=== PATIENT | female | born 1940 | race Caucasian/White ===

== ENCOUNTER → 2017-09-11 17:53 | Outpatient (CLI) | payer MEDICARE, SELFPAY ==
--- NOTE | 2017-09-11 18:01 | RAD_ITS ---
STUDY: X-RAY - CERVICAL SPINE REASON FOR EXAM: Female, 77 years old. Neck pain TECHNIQUE: 4 view(s) of the cervical spine were obtained. COMPARISON: None FINDINGS: There is degenerative loss of disc height with osteophytic ridging at C3-C4, C4-C5 and C5-C6. There is LEFT-sided facet arthropathy at C5-C6. The odontoid process is intact. There are NO fractures or malalignments. The prevertebral soft tissues are normal in thickness. RAD/Cerv Spine 2 or 3 Views IMPRESSION: There are degenerative disc changes. There is NO fracture or malalignment. Electronically Signed: Tj Agosto MD at 6:26 EDT , Service support ,
[2017-09-11 18:59] LABS: Absolute Lymphocyte Count 1.98 X10^3/ul (0.83-4.51); Absolute Neutrophil Count 4.9 X10^3/uL (2.0-7.7); Basophil# 0.03 X10^3/uL; Basophil% 0.4 % (0-1); Eosinophil# 0.06 X10^3/uL; Eosinophils% 0.8 % (0-5); Hemoglobin 13.3 g/dl (12.0-15.0); Lymphocyte # 1.98 X10^3/ul (4.0); Lymphocyte % 26.1 % (19-41); Mean Corp Hgb Conc 33.3 g/gl (32-36); Mean Corpuscular Hgb 34.2 pg (27.0-32.0); Mean Corpuscular Volume 102.8 fL (81-99); Mean Platelet Vol. 9.3 fl (6.2-12.0); Monocyte# 0.63 X10^3/uL; Monocyte% 8.3 % (0-10); Neutrophil # 4.88 X10^3/uL (2.7-7.7); Neutrophil % 64.3 % (47-70); Platelet Count 259 K/mm3 (150-450); RBC Distribution Width CV 13.2 % (11.6-14.6); RBC Distribution Width SD 49.7 fl (35.1-43.9); Red Blood Count 3.89 M/mm3 (4.2-5.4); White Blood Count 7.6 K/mm3 (4.4-11.0)
[2017-09-11 19:02] LABS: POSITIVE COUNT NO; POSITIVE DIFFERENTIAL NO; POSITIVE MORPHOLOGY NO
[2017-09-11 19:28] LABS: ALB/GLOB Ratio 1.2 RATIO (0.9-2.4); AST(SGOT) 41 U/L (15-37); Alanine Aminotransfer ALT/SGPT 62 U/L (13-56); Albumin, Serum 3.9 g/dL (3.2-5.0); Alkaline Phosphatase 59 U/L (45-117); Anion Gap 9 (5-15); BUN 11 mg/dL (7-18); BUN/Creat Ratio 15.6 RATIO (10-20); Calcium,Total 9.6 mg/dL (8.5-10.1); Chloride 97 mmol/L (98-107); Cholesterol 212 mg/dL (200); EST Glomerular Filtration Rate 86 mL/min (>60); Est Glom Filt Rate - Afr Amer 104 mL/min (>60); Globulin 3.2 g/dL (2.2-4.2); Glucose 100 mg/dL (74-106); High Density Lipoprotein 139 mg/dL; Protein, Total 7.1 g/dL (6.4-8.2); Sodium Level 134 mmol/L (136-145); Thyroid Stim Hormone (TSH) 2.48 uIU/mL (0.358-3.74); Triglycerides 48 mg/dL; Very Low Density Lipoprotein 10 mg/dL (5-40)
[2017-09-11 19:31] LABS: Vitamin B12 489 pg/mL (211-911); Vitamin D,25 Hydroxy 52.1 ng/mL (29.95-100.01)
[2017-09-13 16:10] LABS: Folate, Hemolysate Test 511.5 ng/mL (Not Estab.)
[2017-09-14 14:07] LABS: Folates, RBC Test 1279 ng/mL (>498)
== END ==
PROVIDERS: Family Provider Family Medicine Geriatric Medicine; PCP Family Medicine Geriatric Medicine; Visit Provider Family Medicine Geriatric Medicine
DX: I10 Essential (primary) hypertension (principal); E53.8 Deficiency of other specified B group vitamins; E55.9 Vitamin D deficiency, unspecified; E78.4 Other hyperlipidemia; F10.10 Alcohol abuse, uncomplicated; M54.12 Radiculopathy, cervical region
CPT/HCPCS: 36415; 72040; 80053; 80061; 82306; 82607; 82747; 84443; 85014; 85025

== ENCOUNTER → 2017-10-03 07:34 | Outpatient (CLI) | payer MEDICARE, SELFPAY ==
--- NOTE | 2017-10-03 07:45 | MRI_ITS ---
STUDY: MRI CERVICAL SPINE WITHOUT CONTRAST REASON FOR EXAM: Female, 77 years old. neck pain, left arm pain/ tingling TECHNIQUE: Standardized fat and water weighted pulse sequences were obtained in the sagittal and axial planes. COMPARISON: X-ray September 11, 2017 FINDINGS: Normal foramen magnum and brainstem-cervical cord junction. Normal craniovertebral junction. Normal anterior atlantoaxial articulation. Normal odontoid process. Normal cervical lordosis. There is loss of disc height at C3-4 through C5-6. There is multilevel disc desiccation. Vertebral body heights are maintained. Bone marrow signal is normal. C2/3: No disc bulge or herniation or central canal or neuroforaminal stenosis. C3/4: There is bilateral uncovertebral hyperostosis. There is a broad-based protrusion extending from the right to left paracentral regions, larger on the right. There is moderate central canal stenosis and severe bilateral neuroforaminal stenosis. C4/5: There is left worse than right uncovertebral hyperostosis and a diffuse bulge larger on the left. There is left facet arthropathy. There is moderate central canal stenosis and severe left and moderate right neural foraminal stenosis. C5/6: There is left uncovertebral hyperostosis and a diffuse bulge larger on the left. There is moderate central canal stenosis and severe left and moderate right neuroforaminal stenosis. C6/7: There is a small right paracentral protrusion. There is left facet arthropathy. There is no central canal stenosis. There is moderate left without right neuroforaminal stenosis. C7/T1: No disc bulge or herniation or central canal stenosis. There are subcentimeter bilateral foraminal cystic structures suggesting perineural cysts. T1/2: Sagittal images only were obtained. No disc bulge or herniation or central canal stenosis. There are subcentimeter bilateral foraminal cystic structures suggesting perineural cysts. Normal cervical cord. Normal visualized soft tissue structures. MRI/Spine Cervical (Routine) IMPRESSION: Multilevel degenerative changes, as described above. C3/4: There is bilateral uncovertebral hyperostosis. There is a broad-based protrusion extending from the right to left paracentral regions, larger on the right. There is moderate central canal stenosis and severe bilateral neuroforaminal stenosis. C4/5: There is left worse than right uncovertebral hyperostosis and a diffuse bulge larger on the left. There is left facet arthropathy. There is moderate central canal stenosis and severe left and moderate right neural foraminal stenosis. C5/6: There is left uncovertebral hyperostosis and a diffuse bulge larger on the left. There is moderate central canal stenosis and severe left and moderate right neuroforaminal stenosis. C6/7: There is a small right paracentral protrusion. There is left facet arthropathy. There is moderate left neuroforaminal stenosis. C7/T1: There are subcentimeter bilateral foraminal cystic structures suggesting perineural cysts. T1/2: There are subcentimeter bilateral foraminal cystic structures suggesting perineural cysts. Electronically Signed: Lucille Martines MD at 13:42 EDT , Service support ,
== END ==
PROVIDERS: Family Provider Family Medicine Geriatric Medicine; PCP Family Medicine Geriatric Medicine; Visit Provider Anesthesiology Pain Medicine
DX: M54.2 Cervicalgia (principal); M79.602 Pain in left arm
CPT/HCPCS: 72141

== ENCOUNTER 2020-02-10 18:38 | Observation (INO) | payer MEDICARE, SELFPAY ==
[2020-02-10 18:40] VITALS: BP 149/83; PULSE 62; RESP 18; TEMP 36.3; O2SAT 99; BMI 29.8
--- NOTE | 2020-02-10 19:06 | EKG12_ITS ---
Test Reason : WEAKNESS Blood Pressure : / mmHG Vent. Rate : 059 BPM Atrial Rate : 059 BPM P-R Int : 218 ms QRS Dur : 086 ms QT Int : 424 ms P-R-T Axes : 036 015 063 degrees QTc Int : 419 ms Sinus bradycardia with 1st degree A-V block Otherwise normal ECG Confirmed by ALIYA DAVIS, PARVEZ ([id number]), editor newspaper SHYANNE NAZARIO ([id number]) on 02/12/2020 1:03:27 PM Referred By: DC/ Confirmed By:PARVEZ PISANO MD
[2020-02-10 19:18] VITALS: O2SAT 99
[2020-02-10 19:30] LABS: Absolute Lymphocyte Count 1.61 X10^3/uL (0.83-4.51); Absolute Neutrophil Count 3.8 X10^3/uL (2.0-7.7); Basophil# 0.07 X10^3/uL; Basophil% 1.1 % (0-1); Eosinophils% 3.1 % (0-5); Hematocrit 29.6 % (37-47); Hemoglobin 9.8 g/dL (12.0-15.0); Lymphocyte # 1.61 X10^3/ul (4.0); Lymphocyte % 25.4 % (19-41); Mean Corp Hgb Conc 33.1 g/dL (32-36); Mean Corpuscular Hgb 33.4 pg (27.0-32.0); Mean Platelet Vol. 10.5 fl (6.2-12.0); Monocyte# 0.66 X10^3/uL; Monocyte% 10.4 % (0-10); NRBC Flagged by Analyzer 0 % (0-5); Neutrophil # 3.79 X10^3/uL (2.7-7.7); Neutrophil % 59.7 % (47-70); Platelet Count 322 K/mm3 (150-450); RBC Distribution Width CV 12.6 % (11.6-14.6); RBC Distribution Width SD 46.5 fl (35.1-43.9); Red Blood Count 2.93 M/mm3 (4.2-5.4); White Blood Count 6.4 K/mm3 (4.4-11.0)
--- NOTE | 2020-02-10 19:45 | RAD_ITS ---
STUDY: X-RAY CHEST REASON FOR EXAM: Female, 79 years old. WEAKNESS AND SOB. TECHNIQUE: Single AP portable view of the chest. COMPARISON: None. FINDINGS: The lungs are clear and expanded. There is no demonstrated pleural abnormality. Normal size heart. Normal mediastinum and ibis. Normal visualized pulmonary arteries. There is atherosclerotic calcification of the aortic arch with tortuosity. Unremarkable visualized osseous structures. RAD/Chest 1 View (Portable) IMPRESSION: No acute process Electronically Signed: Dean Maldonado MD at 20:00 EDT , Service support ,
[2020-02-10 19:56] LABS: BNP,B-Type NATRIURETIC PEPTIDE 221.2 pg/mL (0-100)
[2020-02-10 20:09] LABS: ALB/GLOB Ratio 1.1 RATIO (0.9-2.4); AST(SGOT) 13 U/L (15-37); Alanine Aminotransfer ALT/SGPT < 6 U/L (13-56); Albumin, Serum 3.5 g/dL (3.2-5.0); Alkaline Phosphatase 57 U/L (45-117); Anion Gap 6 (5-15); BUN 33 mg/dL (7-18); Calcium,Total 9.7 mg/dL (8.5-10.1); Chloride 93 mmol/L (98-107); Creatinine, Serum 1.94 mg/dL (0.55-1.02); EST Glomerular Filtration Rate 27 mL/min (>60); Est Glom Filt Rate - Afr Amer 32 mL/min (>60); Estimated Creatinine Clearance 20.64 ml/min; Globulin 3.1 g/dL (2.2-4.2); Glucose 94 mg/dL (74-106); Potassium 4.9 mmol/L (3.5-5.1); Protein, Total 6.6 g/dL (6.4-8.2); Sodium Level 126 mmol/L (136-145); Thyroid Stim Hormone (TSH) 2.04 uIU/mL (0.358-3.74)
[2020-02-10 20:55] VITALS: BP 144/60; PULSE 54; RESP 14; O2SAT 97
--- NOTE | 2020-02-10 21:52 | ED.DCSUM_ITS ---
- ER Visit Summary Date of Service: 02/10/20 Chief Complaint: Lower extremity edema History of Present Illness: The patient is a 79 F with bilateral lower extremity edema worsening over the past several days. Difficulty walking yesterday, and then unable to walk today. Denies any history of CHF, liver disease, renal disease. Denies any history of blood clots or painful swelling. Physical Examination: Afebrile and vital signs unremarkable. Pale skin. No acute distress. Heart regular. Lungs clear. Abdomen soft. Symmetric pitting lower extremity edema noted. Neurovascular intact distally. Test Results: EKG showed sinus rhythm at a rate of 59 with first-degree AV block. Chest x-ray normal. Hemoglobin 9.8, sodium 126, BUN 33, creatinine 1.94. Troponin normal. BNP 221. TSH normal. Emergency Department Course and Treatment: Results were reviewed with the patient. She has worsening anemia, hyponatremia, and acute kidney injury. She is not doing well at home, having trouble walking. She is not eating or drinking much. Patient and family wanted to avoid hospitalization if possible. I advised that all of this would benefit from hospitalization and is not a good choice for outpatient care. PCP agreed. The hospitalist was contacted. Treatment Plan: As above Disposition: Admission Impression: Anemia, hyponatremia, acute kidney injury This note was generated with [employer] dictation software. It may contain incorrect words, spelling, and punctuation that were not noted in review of the chart prior to signing ED Disposition - Plan for ED Patient: Referrals: GIAN REYNOSO [Primary Care Provider] -
[2020-02-10 22:10] VITALS: BP 173/85; PULSE 64; RESP 16; TEMP 36.8; O2SAT 96
--- NOTE | 2020-02-10 22:14 | HP.PCM_ITS ---
Problem List (1) Generalized weakness Status: Acute (2) Edema Status: Acute (3) Parkinson disease Status: Chronic (4) Hypertension Status: Chronic (5) Hypothyroid Status: Chronic History of Present Illness Date of Admission: 02/10/20 Chief Complaint: genarlized weakness, lower extremity edema The patient is a 79 year old female patient with a past medical history of Parkinson's disease diagnosed 3 months ago, hypertension, hypothyroidism who presents the emergency room with generalized weakness and acute lower extremity edema. Onset of this generalized weakness began approximately 4 days ago and has progressed since. The patient denies fever chills no chest pain shortness of breath no nausea vomiting or diarrhea. She does have an elevated BNTP greater than 200 however cardiac shadow is normal by chest x-ray. Due to difficulty with ambulation due to generalized weakness and unknown status of heart function patient will be admitted for diuresis of her edema and echocardiogram to evaluate heart function. Past Medical History Past Medical History (Chronic Problems): Chronic Problems Parkinson disease (Chronic) Hypertension (Chronic) Hypothyroid (Chronic) Allergies No Known Allergies Allergy (Verified 02/10/20 18:42) Home Medications: Ambulatory Orders Medication Instructions Recorded Celecoxib [Celebrex] 200 mg PO DAILY 02/26/15 Gabapentin [Neurontin] 600 mg PO QHS 02/26/15 Levothyroxine Sodium [Levoxyl] 25 mcg PO DAILY 02/26/15 Carbidopa/Levodopa 1.5 tab PO TID 02/10/20 [Carbidopa-Levodopa 25-100 Tab] Hydrochlorothiazide [Hctz] 25 mg PO DAILY 02/10/20 Lisinopril 20 mg PO DAILY 02/10/20 Metoprolol Tartrate 50 mg PO BID 02/10/20 Ondansetron [Ondansetron Odt] 4 mg PO TID PRN 02/10/20 Smoking Status: Former smoker - *Family History Maternal History Items: No pertinent history Review of Systems Constitutional: Reports: Weakness. Denies: Chills, Fever, Weight Change HEENT: Denies: Head Aches, Sinus Congestion, Sinus Drainage Cardiovascular: Reports: Edema. Denies: Chest Pain, Palpitations Respiratory: Denies: Cough, Shortness of breath at rest, Sputum production Gastrointestinal: Denies: Abdominal Pain, Nausea, Vomiting Genitourinary: Denies: Dysuria Musculoskeletal: Denies: Joint Pain, Joint Tenderness Skin: Denies: Rash, Wounds Neurological: Denies: Numbness, Tingling, Focal weakness Psychiatric: Denies: Anxiety, Depression, Homicidal Ideations, Suicidal Klaudia ations Hematologic/ Lymphatic: Denies: Easy Bruising, Easy Bleeding VTE Information - Inpt Only VTE Present on Admission: No VTE Mechan Device Prophylaxis: None Patient Problems: Active and Suspected Problems Generalized weakness (Acute) Edema (Acute) - Physical Exam Vitals/I&O's: Vital Signs Temp Pulse Resp BP Pulse Ox 98.3 F 64 16 173/85 H 96 02/10/20 22:10 02/10/20 22:10 02/10/20 22:10 02/10/20 22:10 02/10/20 22:10 Oxygen Delivery Method Room Air Weight: 174 lb Body Mass Index (BMI) 29.8 General: Alert, Oriented x3, Cooperative HEENT: Atraumatic, Normocephalic Neck: Supple Lungs: Clear to auscultation, Normal air movement, No rhonchi, No wheeze, No rales Cardiovascular: Regular rate, Normal S1, Normal S2, No murmurs Abdomen: Bowel Sounds Present, Soft, Non Tender Extremities: Capillary Refill Less than 3 Seconds, Edema - #+ pitting edema to mid calf bilat Skin: No rashes Musculoskeletal: No Tenderness to Palpation of Joints or Extremities Neurological: Neuro grossly intact Psych/Mental Status: Normal Affect, Appropriate Laboratory Results 02/10/20 19:20: Sodium 126 L, Potassium 4.9, Chloride 93 L, Carbon Dioxide 27.0, Anion Gap 6, BUN 33 H, Creatinine 1.94 H, Estim Creat Clear Calc 20.64, Est GFR (MDRD) Af Amer 32 L, Est GFR (MDRD) Non-Af 27 L, BUN/Creatinine Ratio 17.0, Glucose 94, Calcium 9.7, Total Bilirubin 0.40, AST 13 L, ALT < 6 L, Alkaline Phosphatase 57, Troponin I < 0.015, Total Protein 6.6, Albumin 3.5, Globulin 3.1, Albumin/Globulin Ratio 1.1, TSH 2.04 02/10/20 19:20: WBC 6.4, RBC 2.93 L, Hgb 9.8 L, Hct 29.6 L, MCV 101.0 H, MCH 33.4 H, MCHC 33.1, RDW Std Deviation 46.5 H, RDW Coeff of Bandar 12.6, Plt Count 322, MPV 10.5, Immature Gran % (Auto) 0.300, Neut % (Auto) 59.7, Lymph % (Auto) 25.4, [place] % (Auto) 10.4 H, Eos % (Auto) 3.1, Baso % (Auto) 1.1 H, Absolute Neuts (auto) 3.8, Absolute Lymphs (auto) 1.61, Nucleated RBC % 0 02/10/20 19:20: B-Natriuretic Peptide 221.2 H Assessment/Plan All Active Problems Generalized weakness (Acute) Edema (Acute) Chronic Problems Parkinson disease (Chronic) Hypertension (Chronic) Hypothyroid (Chronic) 1. Generalized weakness?admit patient to progressive care unit. CBC BMP in the morning. Physical therapy evaluation for activities of daily living 2. Edema?IV Lasix 20 mg x 1 and reevaluate edema in the a.m. echocardiogram in the morning to evaluate heart function 3. Parkinson's disease?continue carbidopa levodopa 4. Hypertension?continue home medications 5. Hypothyroidism?check TSH and continue thyroid medication 6. VT prophylaxis?low molecular weight heparin OBSV E&M: 69089 Initial observation care L2
[2020-02-10 22:45] VITALS: BP 141/48; PULSE 63; RESP 18; TEMP 36.6; O2SAT 100
[2020-02-10 23:21] VITALS: BMI 29.8; BMI 29.9
[2020-02-10] MEDS: Gabapentin 600 MG Tablet PO (23:49)
[2020-02-11] VITALS (10 sets, daily range): BP systolic 84–142; BP diastolic 48–69; PULSE 55–81; RESP 16–18; TEMP 36.5–36.6; O2SAT 96–100
[2020-02-11] MEDS: 0.9% Saline Lock 10 ML Syringe IV ×3 (05:49→21:03)
[2020-02-11] MEDS: Furosemide 20 MG/2 ML VIAL IV ×3 (05:49→21:02)
--- NOTE | 2020-02-11 05:55 | ECHOD_ITS ---
Reason For Study: HTN Procedure This was a 2D Doppler, Color Flow transthoracic echocardiogram. Exam performed portable in patient room. Left Ventricle Normal LV size. Mild concentric left ventricular hypertrophy. Left ventricular systolic function is normal. The estimated ejection fraction is 65 %. Diastolic function is indeterminate. No regional wall motion abnormalities noted. Right Ventricle Normal RV size. Normal systolic function. Atria The left atrium is mildly enlarged. Normal right atrium. No doppler evidence for ASD. Mitral Valve There is no mitral annular calcification. Mild mitral valve prolapse, posterior leaflet. Trivial mitral valve insufficiency. Tricuspid Valve Normal tricuspid valve. Trivial tricuspid valve insufficiency. Right ventricular systolic pressure estimated to be 27 mmHg. Aortic Valve Trisinus/trileaflet aortic valve. Mild diffuse aortic valve thickening. Mild focal aortic valve calcification. Pulmonic Valve The pulmonic valve is not well visualized. Trivial pulmonic valve insufficiency. Great Vessels Normal sized aortic root. Pericardium/Pleural No pericardial effusion. MMode/2D Measurements & Calculations LVIDd: 3.8 cm IVSd: 1.4 cm Ao root diam: 3.4 cm LVIDs: 2.2 cm LVPWd: 1.5 cm RVDd: 3.3 cm FS: 42.4 % LAV(MOD-bp): 54.5 ml LVAd ap4: 25.0 cm2 SV(MOD-sp4): 49.9 ml LAV(MOD-bp) Indexed: 29.6 ml/m2 EDV(MOD-sp4): 73.5 ml LAV(MOD-sp2): 54.0 ml EDV(sp4-el): 76.4 ml LAV(MOD-sp4): 54.3 ml LVAs ap4: 12.6 cm2 ESV(MOD-sp4): 23.6 ml ESV(sp4-el): 23.6 ml EF(MOD-sp4): 67.9 % EF(sp4-el): 69.1 % SV(sp4-el): 52.8 ml LA A4 area: 19.6 cm2 LA dimension(2D): 3.9 cm RA A4 area: 12.1 cm2 Time Measurements MV dec time: 0.28 sec Doppler Measurements & Calculations MV E max carlos a: 85.9 cm/sec Lat Peak E' Carlos A: 5.4 cm/sec Med Peak E' Carlos A: 4.6 cm/sec MV A max carlos a: 101.9 cm/sec E/E' lat: 16.0 E/E' med: 18.5 MV E/A: 0.84 MV V2 max: 96.0 cm/sec Ao V2 max: 176.7 cm/sec LV V1 max: 113.4 cm/sec MV max P.7 mmHg Ao max P.5 mmHg LV V1 max P.1 mmHg MV V2 mean: 52.3 cm/sec MV mean P.3 mmHg MV V2 VTI: 32.7 cm PA V2 max: 100.9 cm/sec TR max carlos a: 242.1 cm/sec MV P1/2t-pr_phl: 91.2 msec TR max P.5 mmHg Interpretation Summary Left ventricular systolic function is normal. The estimated ejection fraction is 65 %. Mild concentric left ventricular hypertrophy. The left atrium is mildly enlarged. Mild mitral valve prolapse, posterior leaflet Trivial mitral valve insufficiency. Trivial tricuspid valve insufficiency. Mild diffuse aortic valve thickening. Mild focal aortic valve calcification. Trivial pulmonic valve insufficiency. Right ventricular systolic pressure estimated to be 27 mmHg. Diastolic function is indeterminate. Ordering Physician: John Jenkins Referring Physician: GIAN REYNOSO Performed By: Sabina Martinez, RDCS, RVT
[2020-02-11] MEDS: Carbidopa/Levodopa 25/100 Tablet PO ×3 (06:46→16:59)
[2020-02-11] MEDS: Levothyroxine 25 MCG TABLET PO (06:46)
[2020-02-11 06:56] LABS: Anion Gap 6 (5-15); BUN 28 mg/dL (7-18); BUN/Creat Ratio 18.7 RATIO (10-20); Calcium,Total 9.4 mg/dL (8.5-10.1); Chloride 97 mmol/L (98-107); EST Glomerular Filtration Rate 36 mL/min (>60); Est Glom Filt Rate - Afr Amer 43 mL/min (>60); Estimated Creatinine Clearance 26.69 ml/min; Glucose 86 mg/dL (74-106); Potassium 4.1 mmol/L (3.5-5.1); Sodium Level 129 mmol/L (136-145); Thyroid Stim Hormone (TSH) 2.74 uIU/mL (0.358-3.74)
[2020-02-11 07:20] LABS: Differential Comment MANUAL DIFF; Lymphocyte 41 % (19-41); Monocyte 5 % (0-10); Neutrophil-Segmented 54 % (47-70); Platelet Estimate ADEQUATE (ADEQ); Red Cell Morphology NORM C+C NORMAL (NORM C&C); Total Cells Counted 100 (MANUAL DIFF)
--- NOTE | 2020-02-11 08:23 | NURSING ---
Patient okay with sharing information with PA by the name of Bertin Traore ([phone])
[2020-02-11 08:26] LABS: Absolute Lymphocyte Count 1.85 X10^3/uL (0.83-4.51); Absolute Neutrophil Count 2.4 X10^3/uL (2.0-7.7); Basophil# 0.06 X10^3/uL; Basophil% 1.2 % (0-1); Eosinophil# 0.24 X10^3/uL; Eosinophils% 4.7 % (0-5); Hematocrit 29.3 % (37-47); Lymphocyte # 1.85 X10^3/ul (4.0); Lymphocyte % 36.6 % (19-41); Mean Corp Hgb Conc 34.1 g/dL (32-36); Mean Corpuscular Hgb 34.6 pg (27.0-32.0); Mean Corpuscular Volume 101.4 fL (81-99); Mean Platelet Vol. 11.2 fl (6.2-12.0); Monocyte# 0.46 X10^3/uL; Monocyte% 9.1 % (0-10); NRBC Flagged by Analyzer 0 % (0-5); Neutrophil # 2.44 X10^3/uL (2.7-7.7); Neutrophil % 48.2 % (47-70); Platelet Count 296 K/mm3 (150-450); RBC Distribution Width CV 12.4 % (11.6-14.6); RBC Distribution Width SD 45.8 fl (35.1-43.9); Red Blood Count 2.89 M/mm3 (4.2-5.4); White Blood Count 5.1 K/mm3 (4.4-11.0)
[2020-02-11] MEDS: Celecoxib 200 MG Capsule PO (09:35)
[2020-02-11] MEDS: Enoxaparin 30 MG/0.3 ML Syringe SC (09:35)
--- NOTE | 2020-02-11 10:32 | NURSING ---
Report given to Benedict Lloyd RN at this time.
--- NOTE | 2020-02-11 11:58 | PN_ITS ---
<Ricardo Torres - Last Filed: 02/11/20 11:58> Patient Problems: Active and Suspected Problems Generalized weakness (Acute) Edema (Acute) Reason for Visit: LE edema, weakness. Subjective: No improvement in weakness. Ongoing LE edema however pt notes pedal edema improved. No SOB. No CP. No LH. No fever/chills/cough. Vitals/I&O's: Vital Signs Temp Pulse Resp BP Pulse Ox 97.8 F 70 18 84/48 L 100 02/11/20 09:13 02/11/20 09:13 02/11/20 09:13 02/11/20 09:13 02/11/20 09:13 Oxygen Delivery Method Room Air Weight: 173 lb 11.588 oz Body Mass Index (BMI) 29.8 Intake and Output for Last 24 Hours 02/09/20 02/10/20 02/11/20 23:59 23:59 23:59 Intake Total 120 / 120 Balance 120 / 120 General: Alert, Oriented x3, Cooperative HEENT: Atraumatic, PERRLA, EOMI, Normocephalic Neck: Supple, No JVD, Negative Carotid Bruits Lungs: Clear to auscultation, Normal air movement Cardiovascular: Regular rate, No murmurs Abdomen: Bowel Sounds Present, Soft, Non Tender Extremities: No edema, Capillary Refill Less than 3 Seconds, Edema - 3+ pitting edema BLE Skin: No rashes, No breakdown Musculoskeletal: No Tenderness to Palpation of Joints or Extremities Neurological: Cranial nerves II-XII grossly intact Psych/Mental Status: Normal Affect, Appropriate, Alert and oriented to time, place, person, mood and affect Laboratory Results 02/10/20 19:20: Sodium 126 L, Potassium 4.9, Chloride 93 L, Carbon Dioxide 27.0, Anion Gap 6, BUN 33 H, Creatinine 1.94 H, Estim Creat Clear Calc 20.64, Est GFR (MDRD) Af Amer 32 L, Est GFR (MDRD) Non-Af 27 L, BUN/Creatinine Ratio 17.0, Glucose 94, Calcium 9.7, Total Bilirubin 0.40, AST 13 L, ALT < 6 L, Alkaline Phosphatase 57, Troponin I < 0.015, Total Protein 6.6, Albumin 3.5, Globulin 3.1, Albumin/Globulin Ratio 1.1, TSH 2.04 02/10/20 19:20: WBC 6.4, RBC 2.93 L, Hgb 9.8 L, Hct 29.6 L, MCV 101.0 H, MCH 33.4 H, MCHC 33.1, RDW Std Deviation 46.5 H, RDW Coeff of Bandar 12.6, Plt Count 322, MPV 10.5, Immature Gran % (Auto) 0.300, Neut % (Auto) 59.7, Lymph % (Auto) 25.4, Ward % (Auto) 10.4 H, Eos % (Auto) 3.1, Baso % (Auto) 1.1 H, Absolute Neuts (auto) 3.8, Absolute Lymphs (auto) 1.61, Nucleated RBC % 0 02/10/20 19:20: B-Natriuretic Peptide 221.2 H 02/11/20 06:02: WBC 5.1, RBC 2.89 L, Hgb 10.0 L, Hct 29.3 L, MCV 101.4 H, MCH 34.6 H, MCHC 34.1, RDW Std Deviation 45.8 H, RDW Coeff of Bandar 12.4, Plt Count 296, MPV 11.2, Immature Gran % (Auto) 0.200, Neut % (Auto) 48.2, Lymph % (Auto) 36.6, Ward % (Auto) 9.1, Eos % (Auto) 4.7, Baso % (Auto) 1.2 H, Absolute Neuts (auto) 2.4, Absolute Lymphs (auto) 1.85, Total Counted 100, Neutrophils % (Manual) 54, Lymphocytes % (Manual) 41, Monocytes % (Manual) 5, Nucleated RBC % 0, Differential Comment MANUAL DIFF, Platelet Estimate ADEQUATE, RBC Morphology NORM C+C 02/11/20 06:02: Sodium 129 L, Potassium 4.1, Chloride 97 L, Carbon Dioxide 26.0, Anion Gap 6, BUN 28 H, Creatinine 1.50 H, Estim Creat Clear Calc 26.69, Est GFR (MDRD) Af Amer 43 L, Est GFR (MDRD) Non-Af 36 L, BUN/Creatinine Ratio 18.7, Glucose 86, Calcium 9.4, TSH 2.74 Current Medications Carbidopa/Levodopa (Sinemet) 1.5 tablet PO TIDAC [facility] Last Admin: 02/11/20 06:46 Dose: 1.5 tablet Documented by: Celecoxib (Celebrex) 200 mg PO DAILY [facility] Last Admin: 02/11/20 09:35 Dose: 200 mg Documented by: Enoxaparin Sodium (Lovenox) 30 mg SC DAILY [facility] Last Admin: 02/11/20 09:35 Dose: 30 mg Documented by: Furosemide (Lasix) 20 mg IV Q8 [facility] Gabapentin (Neurontin) 600 mg PO QHS [facility] Last Admin: 02/10/20 23:49 Dose: 600 mg Documented by: Sodium Chloride () 250 mls @ 15 mls/hr IV .[id number] PRN PRN Reason: Saline Flush Sodium Chloride () 250 mls @ 15 mls/hr IV .[id number] PRN PRN Reason: Additional IVPB Infusion Levothyroxine Sodium (Synthroid) 25 mcg PO DAILY@0600 [facility] Last Admin: 02/11/20 06:46 Dose: 25 mcg Documented by: Lisinopril (Zestril) 20 mg PO DAILY [facility] Metoprolol Tartrate (Lopressor (Beta Bayron)) 50 mg PO BID [facility] Ondansetron HCl (Zofran Odt) 4 mg PO TID PRN PRN PRN Reason: NAUSEA Sodium Chloride () 10 - 40 ml IV UD PRN PRN Reason: SALINE FLUSH Last Admin: 02/11/20 05:49 Dose: 10 ml Documented by: STROKE Vital Signs/Narrative: Vital Signs Temp Pulse Resp BP Pulse Ox 02/11/20 09:13 97.8 F 70 18 84/48 L 100 Medical Necessity - Tobacco Use Smoking Status: Former smoker Assessment/Plan All Active Problems Generalized weakness (Acute) Edema (Acute) 1. LE edema - unclear etiology. denies hx CHF. CXR neg. No SOB/CP. Add jarad wraps and fluid restrict. Continue lasix. Echo is pending. BNP is elevated. Obtain venous duplex. TSH normal. BP borderline. 2. THOMPSON - improved with lasix, suspect cardiorenal 3. HTN - hold orals if systolic < 100. 4. Hx parkinsons recently dx - sinemet 5. Hypothyroid - tsh normal. continue synthroid. 6. Macrocytic anemia - stable. check b12, folate, iron DVT ppx: lovenox DC planning: PT OT evals, pt here with weakness. This patient was seen by Ricardo Torres PA-C under the supervision of Doctor Feliberto. <Manfred Dao - Last Filed: 02/11/20 12:22> Vitals/I&O's: Vital Signs Temp Pulse Resp BP Pulse Ox 97.8 F 70 18 84/48 L 100 02/11/20 09:13 02/11/20 09:13 02/11/20 09:13 02/11/20 09:13 02/11/20 09:13 Oxygen Delivery Method Room Air Weight: 78.8 kg Body Mass Index (BMI) 29.8 Intake and Output for Last 24 Hours 02/09/20 02/10/20 02/11/20 23:59 23:59 23:59 Intake Total 120 / 120 Balance 120 / 120 Laboratory Results 02/10/20 19:20: Sodium 126 L, Potassium 4.9, Chloride 93 L, Carbon Dioxide 27.0, Anion Gap 6, BUN 33 H, Creatinine 1.94 H, Estim Creat Clear Calc 20.64, Est GFR (MDRD) Af Amer 32 L, Est GFR (MDRD) Non-Af 27 L, BUN/Creatinine Ratio 17.0, Glucose 94, Calcium 9.7, Total Bilirubin 0.40, AST 13 L, ALT < 6 L, Alkaline Phosphatase 57, Troponin I < 0.015, Total Protein 6.6, Albumin 3.5, Globulin 3.1, Albumin/Globulin Ratio 1.1, TSH 2.04 02/10/20 19:20: WBC 6.4, RBC 2.93 L, Hgb 9.8 L, Hct 29.6 L, MCV 101.0 H, MCH 33.4 H, MCHC 33.1, RDW Std Deviation 46.5 H, RDW Coeff of Bandar 12.6, Plt Count 322, MPV 10.5, Immature Gran % (Auto) 0.300, Neut % (Auto) 59.7, Lymph % (Auto) 25.4, Ward % (Auto) 10.4 H, Eos % (Auto) 3.1, Baso % (Auto) 1.1 H, Absolute Neuts (auto) 3.8, Absolute Lymphs (auto) 1.61, Nucleated RBC % 0 02/10/20 19:20: B-Natriuretic Peptide 221.2 H 02/11/20 06:02: WBC 5.1, RBC 2.89 L, Hgb 10.0 L, Hct 29.3 L, MCV 101.4 H, MCH 34.6 H, MCHC 34.1, RDW Std Deviation 45.8 H, RDW Coeff of Bandar 12.4, Plt Count 296, MPV 11.2, Immature Gran % (Auto) 0.200, Neut % (Auto) 48.2, Lymph % (Auto) 36.6, Ward % (Auto) 9.1, Eos % (Auto) 4.7, Baso % (Auto) 1.2 H, Absolute Neuts (auto) 2.4, Absolute Lymphs (auto) 1.85, Total Counted 100, Neutrophils % (Manual) 54, Lymphocytes % (Manual) 41, Monocytes % (Manual) 5, Nucleated RBC % 0, Differential Comment MANUAL DIFF, Platelet Estimate ADEQUATE, RBC Morphology NORM C+C 02/11/20 06:02: Sodium 129 L, Potassium 4.1, Chloride 97 L, Carbon Dioxide 26.0, Anion Gap 6, BUN 28 H, Creatinine 1.50 H, Estim Creat Clear Calc 26.69, Est GFR (MDRD) Af Amer 43 L, Est GFR (MDRD) Non-Af 36 L, BUN/Creatinine Ratio 18.7, Glucose 86, Calcium 9.4, TSH 2.74 Current Medications Carbidopa/Levodopa (Sinemet) 1.5 tablet PO TIDAC [facility] Last Admin: 02/11/20 06:46 Dose: 1.5 tablet Documented by: Enoxaparin Sodium (Lovenox) 30 mg SC DAILY [facility] Last Admin: 02/11/20 09:35 Dose: 30 mg Documented by: Furosemide (Lasix) 20 mg IV Q8 [facility] Gabapentin (Neurontin) 600 mg PO QHS [facility] Last Admin: 02/10/20 23:49 Dose: 600 mg Documented by: Sodium Chloride () 250 mls @ 15 mls/hr IV .[id number] PRN PRN Reason: Saline Flush Sodium Chloride () 250 mls @ 15 mls/hr IV .[id number] PRN PRN Reason: Additional IVPB Infusion Levothyroxine Sodium (Synthroid) 25 mcg PO DAILY@0600 [facility] Last Admin: 02/11/20 06:46 Dose: 25 mcg Documented by: Lisinopril (Zestril) 20 mg PO DAILY [facility] Metoprolol Tartrate (Lopressor (Beta Bayron)) 50 mg PO BID [facility] Ondansetron HCl (Zofran Odt) 4 mg PO TID PRN PRN PRN Reason: NAUSEA Sodium Chloride () 10 - 40 ml IV UD PRN PRN Reason: SALINE FLUSH Last Admin: 02/11/20 05:49 Dose: 10 ml Documented by: STROKE Vital Signs/Narrative: Vital Signs Temp Pulse Resp BP Pulse Ox 02/11/20 09:13 97.8 F 70 18 84/48 L 100 Assessment/Plan This patient was seen in conjunction with Ricardo Torres PA-C . I have independently interviewed and examined the patient and reviewed pertinent historical, laboratory, and other data. Please refer to Ricardo Torres PA-C note for details of this patient's presentation, findings, and recommendations. I have reviewed Ricardo Torres PA-C note and concur with documented findings. In brief, patient is an 81-year-old lady with multiple comorbidities who presented with progressive generalized fatigue and weakness with fluid ret ention. Patient was found to have acute kidney injury, hyponatremia on admission admitted to regular nursing floor for further management Physical Examination: GENERAL: cooperative HEENT: Atraumatic; EYES; Anicteric, Normal Conjunctiva NECK; supple, normal thyroid, RESPIRATORY: Diminished to auscultation CARDIOVASCULAR: Regular S1 S2, GI: soft, normoactive bowel sounds, : No Renal angle tenderness; EXTREMITIES: Bilateral edema, no clubbing, MUSCULOSKELETAL: no muscle waisting NEURO: Awake; no lateralizing signs. SKIN: No Rash PSYCH; Flat affect Assessment: 1. Adult failure to thrive 2. Suspected congestive heart failure with preserved ejection fraction (echo ordered) 3. Acute kidney injury 4. Chronic kidney disease stage III 5. Hyponatremia 6. Hypothyroidism 7. Essential hypertension (antihypertensives on hold in view of low blood pressure) 8. Parkinson's disease 9. Anemia secondary to anemia of chronic disorder Recommendations: 1. I have discussed the results of my overview and impressions with the patient 2. Options for management were reviewed Advance planning; did discuss with the patient and family regarding advanced directives as well as CODE STATUS. Did explain the various scenarios involved ( FULL CODE, DNR CCA, DNR CCA with no intubation, and DNR CC and what each meant) patient elected to remain full code with CPR and intubation if indicated. Order was placed. Time spent on discussion 18 minutes. Inpatient E&M: 20073 Subs Hosp L3 Procedures: 51249 Advncd Care Plan 30 Min
--- NOTE | 2020-02-11 12:00 | VDLE_ITS ---
Reason For Study: swelling RIGHT LEFT GSV is normal. GSV is normal. CFV is compressible, spontaneous, phasic, CFV is compressible, spontaneous, phasic, competent and demonstrates normal competent, and demonstrates normal augmentation. augmentation. FV is compressible, spontaneous, phasic, FV is compressible, spontaneous, phasic, competent and demonstrates normal competent and demonstrates normal augmentation. augmentation. POP V is compressible, spontaneous, phasic, POP V is compressible, spontaneous, phasic, competent and demonstrates normal competent and demonstrates normal augmentation. augmentation. T/P Trunk is compressible. T/P Trunk is compressible. PTV is compressible. PTV is compressible. RT PerV is compressible. LT PerV is compressible. Gastroc V are dilated and noncompressible. Procedure Exam performed portable in patient room. The exam was diagnostic. A preliminary report was called and/or faxed to Jennifer HINDS. Interpretation Summary Acute deep venous thrombosis right gastrocnemius vein No evidence for acute deep vein thrombosis left lower extremity Patent and compressible bilateral great saphenous veins Ordering Physician: Ricardo Torres Performed By: Elvin Leos RVT
[2020-02-11 14:06] LABS: Vitamin B12 420 pg/mL (211-911)
[2020-02-11 14:12] LABS: Iron 79 ug/dL (50-170); Iron Binding Capacity,Total 332 ug/dL (250-450); PERCENT IRON SATURATION 23.8 % (15.0-55.0)
--- NOTE | 2020-02-11 15:29 | CASEMGMT ---
This RN CM to room with ALVAREZ form at this time, explanation done-pt voices understanding, and pt signs ALVAREZ form at this time. Original to chart and copy to pt at this time. Pt voices no further questions/concerns/needs at this time. SStaten GUZMAN CM
--- NOTE | 2020-02-11 16:06 | CASEMGMT ---
Healthcare POA form scanned into summary tab of echart, living will provision initialed within this document. JIGNA Aranda
[2020-02-11] MEDS: APIXABAN 5 MG TABLET 10 MG PO (16:59)
[2020-02-11] MEDS: Gabapentin 600 MG Tablet PO (21:02)
[2020-02-12 02:57] VITALS: PULSE 67
[2020-02-12 03:00] VITALS: BP 112/60; PULSE 64; RESP 16; TEMP 36.3; O2SAT 96
[2020-02-12] MEDS: Carbidopa/Levodopa 25/100 Tablet PO ×2 (06:04→10:52)
[2020-02-12] MEDS: Furosemide 20 MG/2 ML VIAL IV (06:04)
[2020-02-12] MEDS: Levothyroxine 25 MCG TABLET PO (06:04)
[2020-02-12] MEDS: 0.9% Saline Lock 10 ML Syringe IV (06:04)
[2020-02-12 06:10] LABS: Hematocrit 26.5 % (37-47); Hemoglobin 8.7 g/dL (12.0-15.0); Mean Corp Hgb Conc 32.8 g/dL (32-36); Mean Corpuscular Hgb 33.7 pg (27.0-32.0); Mean Corpuscular Volume 102.7 fL (81-99); Platelet Count 298 K/mm3 (150-450); RBC Distribution Width CV 12.9 % (11.6-14.6); RBC Distribution Width SD 47.6 fl (35.1-43.9); Red Blood Count 2.58 M/mm3 (4.2-5.4); White Blood Count 4.8 K/mm3 (4.4-11.0)
[2020-02-12 06:32] LABS: Anion Gap 7 (5-15); BUN 28 mg/dL (7-18); BUN/Creat Ratio 18.4 RATIO (10-20); Calcium,Total 8.9 mg/dL (8.5-10.1); Chloride 97 mmol/L (98-107); Creatinine, Serum 1.52 mg/dL (0.55-1.02); EST Glomerular Filtration Rate 35 mL/min (>60); Est Glom Filt Rate - Afr Amer 43 mL/min (>60); Estimated Creatinine Clearance 26.34 ml/min; Glucose 99 mg/dL (74-106); Magnesium 1.8 mg/dL (1.6-2.6); Potassium 3.7 mmol/L (3.5-5.1); Sodium Level 134 mmol/L (136-145)
[2020-02-12 06:43] VITALS: PULSE 67
[2020-02-12 08:57] VITALS: BP 124/61; PULSE 72; RESP 18; TEMP 36.6; O2SAT 98
[2020-02-12] MEDS: APIXABAN 5 MG TABLET 10 MG PO (08:59)
--- NOTE | 2020-02-12 11:56 | PCM.DC ---
- Discharge Diagnoses Current Active Problems: Current Active and Chronic Problems Generalized weakness (Acute) Edema (Acute) Parkinson disease (Chronic) Hypertension (Chronic) Hypothyroid (Chronic) You will use the following diet at home:: Cardiac, Other - 1800 cc of fluid daily, 2-3 grams of sodium daily Your food should be the consistency of: Regular Your liquids should be the consistency of: Regular/Thin Discharge Activity: Return to Normal Activity Additional Instructions: You will need to contact your family medicine physician to arrange to have a CBC and BMP (labs) in one week. You will need to contact your physical therapist of choice to arrange to initiate outpatient physical therapy. Allergies/Adverse Reactions: Allergies No Known Allergies Allergy (Verified 02/10/20 18:42) Medications to take at Discharge Gabapentin [Neurontin] 600 mg PO QHS 02/26/15 Levothyroxine Sodium [Levoxyl] 25 mcg PO DAILY 02/26/15 Carbidopa/Levodopa [Carbidopa-Levodopa 25-100 Tab] 1.5 tab PO TID 02/10/20 Lisinopril 20 mg PO DAILY 02/10/20 Metoprolol Tartrate 50 mg PO BID 02/10/20 Ondansetron [Ondansetron Odt] 4 mg PO TID PRN 02/10/20 Apixaban [Eliquis] 10 mg PO BID #60 tab 02/12/20 Furosemide [Lasix] 40 mg PO DAILY #30 tab 02/12/20 Potassium Chloride [K-Dur] 10 meq PO DAILY #30 tab 02/12/20 The following prescriptions were given: Apixaban [Eliquis] 10 mg PO BID #60 tab Transmission Status: Pending to [facility] Potassium Chloride [K-Dur] 10 meq PO DAILY #30 tab Transmission Status: Pending to [facility] Furosemide [Lasix] 40 mg PO DAILY #30 tab Transmission Status: Pending to [facility] Primary Care Physician: GIAN REYNOSO [Primary Care Provider] - Please follow up with your Primary Care Physician in: 1 week Test Results: Test results from this visit will be discussed in further detail at your follow-up appointment, if applicable. Proposed Discharge Date: 02/12/20
[2020-02-12] MEDS: Magnesium Oxide 400 MG Tablet 800 MG PO (12:16)
--- NOTE | 2020-02-12 12:35 | CASEMGMT ---
Therapy is recommending OP therapy for pt at this time and pt/son state that they would like a script to take to [facility] as pt has been there in the past. Script obtained and to pt at this time. Pt also to be sent home on Eliquis at discharge and med e-scribed to [facility] retail previously. Call to Reece in [facility] retail pharmacy and he states that pt's monthly co-pay will be $47.00 but he did apply a 30 day free trial card at this time. Reece, pharmacist, does state that pt has a $100deductible left to med for meds at this time. Pt/son updated on all at this time, voice understanding and questions answered. Pt/son voice no further questions/concerns/needs at this time. Isra HINDS CM
--- NOTE | 2020-02-12 12:51 | PHA.DC.MC ---
Pharmacy Service has performed discharge medication reconciliation and counseling for this patient. 1. APIXABAN 10MG PO BID X 12 DOSES, THEN 5MG PO BID THEREAFTER 2. FUROSEMIDE 40MG PO DAILY 3. POTASSIUM CHLORIDE 10MEQ PO DAILY The patient's discharge medication list was reviewed for discrepancies and discrepancies were resolved. Home Medications Gabapentin [Neurontin] 600 mg PO QHS 02/26/15 Levothyroxine Sodium [Levoxyl] 25 mcg PO DAILY 02/26/15 Carbidopa/Levodopa [Carbidopa-Levodopa 25-100 Tab] 1.5 tab PO TID 02/10/20 Lisinopril 20 mg PO DAILY 02/10/20 Metoprolol Tartrate 50 mg PO BID 02/10/20 Ondansetron [Ondansetron Odt] 4 mg PO TID PRN 02/10/20 Apixaban [Eliquis] 10 mg PO BID #60 tab 02/12/20 Furosemide [Lasix] 40 mg PO DAILY #30 tab 02/12/20 Potassium Chloride [K-Dur] 10 meq PO DAILY #30 tab 02/12/20 The patient was counseled on the following discharge medications and changes in medications for homegoing were reviewed. The Reason for Use, instructions for use, and potential side effects were reviewed for all new medications. The patient's questions regarding all of their medications were answered. The patient was able to verbally demonstrate an understanding of their discharge medications. Patient counseled by pharmacy benefit managerGeo.
--- NOTE | 2020-02-12 14:25 | DS.PCM_ITS ---
<Ricardo Torres - Last Filed: 02/12/20 14:25> Discharge Date and Diagnosis Date of Admission: 02/10/20 Date of Discharge: 02/12/20 - Primary Discharge Diagnosis Acute Problems: Lower extremity edema secondary to acute diastolic congestive heart failure and right lower extremity DVT Macrocytic anemia Acute kidney injury secondary to cardiorenal syndrome Hypervolemic hyponatremia - Secondary Discharge Diagnosis Chronic Problems: Chronic Problems Parkinson disease (Chronic) Hypertension (Chronic) Hypothyroid (Chronic) Hospital Course and Treatment Imaging Results: RAD/Chest 1 View (Portable) IMPRESSION: No acute process Echo: Interpretation Summary Left ventricular systolic function is normal. The estimated ejection fraction is 65 %. Mild concentric left ventricular hypertrophy. The left atrium is mildly enlarged. Mild mitral valve prolapse, posterior leaflet Trivial mitral valve insufficiency. Trivial tricuspid valve insufficiency. Mild diffuse aortic valve thickening. Mild focal aortic valve calcification. Trivial pulmonic valve insufficiency. Right ventricular systolic pressure estimated to be 27 mmHg. Diastolic function is indeterminate. LE Venous duplex: Interpretation Summary Acute deep venous thrombosis right gastrocnemius vein No evidence for acute deep vein thrombosis left lower extremity Patent and compressible bilateral great saphenous veins Operations: None Procedures: 2-D Echocardiogram Summary of Care Provided: Hospital Course: The patient is a 79 year old F with pmhx CKDIII, HTN, hypothyroidism, Parkinson who presented to the ER with BL LE edema and generalized weakness. She had no respiratory symptoms. CXR was clear. BNP was elevated. She was hyponatremic felt to be 2/2 hypervolemia. She was felt to have CHF and admitted to the PCU on tele. She was placed on IV lasix. She had good diuresis and improvement in LE edema with lasix. A venous duplex was obtained and she was found to have RLE DVT. She was placed on eliquis. She had an echo that demonstrated preserved EF as above. She had some macrocytic anemia while here. TSH was normal, B12, folate, iron studies were normal. She had some ongoing weakness and was seen by PT and OT here. They recommended ongoing outpatient PT. She had previously pursued outpatient therapy with her orthopod and planned to due this at discharge. She was discharged home in stable condition. She will need follow up with her PCP in 1 week and will need a CBC and BMP at follow up. This patient was seen by Ricardo Torres PA-C under the supervision of Dr. Martines. [] - Physical Exam Vitals/I&O's: Vital Signs Temp Pulse Resp BP Pulse Ox 97.8 F 72 18 124/61 H 98 02/12/20 08:57 02/12/20 08:57 02/12/20 08:57 02/12/20 08:57 02/12/20 08:57 Oxygen Delivery Method Room Air Weight: 171 lb 11.841 oz Body Mass Index (BMI) 29.8 Intake and Output for Last 24 Hours 02/10/20 02/11/20 02/12/20 23:59 23:59 23:59 Intake Total 120 / 120 800 / 800 480 / 480 Output Total 1900 / 1900 750 / 750 Balance 120 / 120 -1100 / -1100 -270 / -270 General: Alert, Oriented x3, Cooperative HEENT: Atraumatic, PERRLA, EOMI, Normocephalic Neck: Supple, No JVD, Negative Carotid Bruits Lungs: Clear to auscultation, Normal air movement Cardiovascular: Regular rate, No murmurs Abdomen: Bowel Sounds Present, Soft, Non Tender Extremities: No edema, Capillary Refill Less than 3 Seconds Skin: No rashes, No breakdown Musculoskeletal: No Tenderness to Palpation of Joints or Extremities Neurological: Cranial nerves II-XII grossly intact Psych/Mental Status: Normal Affect, Appropriate, Alert and oriented to time, place, person, mood and affect Laboratory Results 02/12/20 05:50: WBC 4.8, RBC 2.58 L, Hgb 8.7 L, Hct 26.5 L, MCV 102.7 H, MCH 33.7 H, MCHC 32.8, RDW Std Deviation 47.6 H, RDW Coeff of Bandar 12.9, Plt Count 298, MPV 10.0 02/12/20 05:50: Sodium 134 L, Potassium 3.7, Chloride 97 L, Carbon Dioxide 30.0, Anion Gap 7, BUN 28 H, Creatinine 1.52 H, Estim Creat Clear Calc 26.34, Est GFR (MDRD) Af Amer 43 L, Est GFR (MDRD) Non-Af 35 L, BUN/Creatinine Ratio 18.4, Glucose 99, Calcium 8.9, Magnesium 1.8 Discharge Diet: Low fat/ Low Cholesterol, 2000 mg Sodium Diet Discharge Activity: Return to Normal Activity Home Medications: Medications to take at Discharge Gabapentin [Neurontin] 600 mg PO QHS 02/26/15 Levothyroxine Sodium [Levoxyl] 25 mcg PO DAILY 02/26/15 Carbidopa/Levodopa [Carbidopa-Levodopa 25-100 Tab] 1.5 tab PO TID 02/10/20 Lisinopril 20 mg PO DAILY 02/10/20 Metoprolol Tartrate 50 mg PO BID 02/10/20 Ondansetron [Ondansetron Odt] 4 mg PO TID PRN 02/10/20 Apixaban [Eliquis] 10 mg PO BID #60 tab 02/12/20 Furosemide [Lasix] 40 mg PO DAILY #30 tab 02/12/20 Potassium Chloride [K-Dur] 10 meq PO DAILY #30 tab 02/12/20 Following Prescriptions Were Given to Patient: Apixaban [Eliquis] 10 mg PO BID #60 tab Transmission Status: Received by [facility] Potassium Chloride [K-Dur] 10 meq PO DAILY #30 tab Transmission Status: Received by [facility] Furosemide [Lasix] 40 mg PO DAILY #30 tab Transmission Status: Received by [facility] Primary Care Physician: GIAN REYNOSO [Primary Care Provider] - Please follow up with your Primary Care Physician in: 1 week Disposition: Home Minutes spent on discharge:: 35 Patient Condition:: Stable Medical Necessity - Tobacco Use Smoking Status: Former smoker Meaningful Use Info Meaningful Use Diagnoses (Choose all that apply): CHF - CHF DARRELL/ARB ordered at discharge?: Yes Documented LVEF (%): 65 <Shannen Martines - Last Filed: 02/12/20 15:43> Discharge Date and Diagnosis - Secondary Discharge Diagnosis Chronic Problems: Chronic Problems Parkinson disease (Chronic) Hypertension (Chronic) Hypothyroid (Chronic) Hospital Course and Treatment Summary of Care Provided: I agree with the above and the following is a reflection of my own independent history and physical -Eliquis for 3 mos then stop as this is first DVT and it is below the knee only -contiine diuresis as ordered and f/u with PCP in 1 week -BMP and CBC needed at f/u -recommend daily weights and fluid restriction at d/c -pt to watch Na intake -has f/u with neuro soon for parkinson's Subjective: Pt states that she is feeling dramatically better. Denies SOB. Legs are so much improved. - Physical Exam Vitals/I&O's: Vital Signs Temp Pulse Resp BP Pulse Ox 97.8 F 72 18 124/61 H 98 02/12/20 08:57 02/12/20 08:57 02/12/20 08:57 02/12/20 08:57 02/12/20 08:57 Oxygen Delivery Method Room Air Weight: 77.9 kg Body Mass Index (BMI) 29.8 Intake and Output for Last 24 Hours 02/10/20 02/11/20 02/12/20 23:59 23:59 23:59 Intake Total 120 / 120 800 / 800 480 / 480 Output Total 1900 / 1900 750 / 750 Balance 120 / 120 -1100 / -1100 -270 / -270 General: Alert, Oriented x3, Cooperative, No apparent distress, Well developed, Well nourished, - - older WF, sitting up in a chair, son at bedside, appears well HEENT: Atraumatic, PERRLA, EOMI, Normocephalic, EAC Clear Oral: Moist Mucosa, No Gingival or Mucosal Lesions/ Ulcerations Neck: Supple, No JVD, No Nodes, No Nuchal Rigidity, Trachea Midline, Thyroid Normal Size and Texture Lungs: Clear to auscultation, Normal air movement, No rhonchi, No wheeze, No rales Cardiovascular: Regular rate, Regular Rhythm, Normal S1, Normal S2, No murmurs, No Ectopic Activity, No rub noted, No Gallop Abdomen: Bowel Sounds Present, Soft, Non Tender, Non-Distended, No Hepato- splenomegaly, No hernias noted Extremities: No clubbing, No cyanosis, No edema, Capillary Refill Less than 3 Seconds Skin: No rashes, No breakdown Musculoskeletal: No Tenderness to Palpation of Joints or Extremities Lymphatic: No Cervical, Supraclavicular, or Inguinal Adenopathy Neurological: Cranial nerves II-XII grossly intact, Deep Tendon Reflexes 2+/4 and Symmetrical, Neuro grossly intact, Muscle tone normal, Coordination normal Psych/Mental Status: Normal Affect, Appropriate, Alert and oriented to time, place, person, mood and affect Laboratory Results 02/12/20 05:50: WBC 4.8, RBC 2.58 L, Hgb 8.7 L, Hct 26.5 L, MCV 102.7 H, MCH 33.7 H, MCHC 32.8, RDW Std Deviation 47.6 H, RDW Coeff of Bandar 12.9, Plt Count 298, MPV 10.0 02/12/20 05:50: Sodium 134 L, Potassium 3.7, Chloride 97 L, Carbon Dioxide 30.0, Anion Gap 7, BUN 28 H, Creatinine 1.52 H, Estim Creat Clear Calc 26.34, Est GFR (MDRD) Af Amer 43 L, Est GFR (MDRD) Non-Af 35 L, BUN/Creatinine Ratio 18.4, Glucose 99, Calcium 8.9, Magnesium 1.8 Inpatient E&M: 10885 Disch Hosp
== END 2020-02-12 11:57 | disposition home or self-care (01) ==
LOC: ED 19:40 → PCU 22:34
PROVIDERS: Internal Medicine; Physician Assistant; Admitting Provider Family Medicine; Emergency Provider Emergency Medicine; Visit Provider Internal Medicine
DX: I13.0 Hypertensive heart and chronic kidney disease with heart failure and stage 1 through stage 4 chronic kidney disease, or unspecified chronic kidney disease (principal); I50.31 Acute diastolic (congestive) heart failure; I82.461 Acute embolism and thrombosis of right calf muscular vein; G20 Parkinson's disease; E03.9 Hypothyroidism, unspecified; E87.1 Hypo-osmolality and hyponatremia; K56.50 Intestinal adhesions [bands], unspecified as to partial versus complete obstruction; N17.9 Acute kidney failure, unspecified; D63.8 Anemia in other chronic diseases classified elsewhere; I08.3 Combined rheumatic disorders of mitral, aortic and tricuspid valves; Z87.891 Personal history of nicotine dependence; Z79.899 Other long term (current) drug therapy; Z79.01 Long term (current) use of anticoagulants
CPT/HCPCS: 36415; 71045; 80048; 80053; 82607; 82746; 83540; 83550; 83735; 83880; 84443; 84484; 85025; 85027; 93005; 93306; 93970; 96372; 96374; 96376; 97116; 97162; 97166; 97530; 97535; 99218; 99285; A4216; G0378; J1940